=== PATIENT | male | born 1940 | race Caucasian/White ===

== ENCOUNTER 2022-05-19 13:14 | Inpatient (IN) | payer MEDICARE, MEDICAID ==
[~2022-05-19] VITALS: Ht 172.7 cm; Wt 67.1 kg
[2022-05-19] MEDS ORDERED: SODIUM CHLORIDE 0.9% 1,000 ML IV ONE (14:45)
[2022-05-19 15:55] LABS: BASOPHILS % 0.5 % (0.0-2.0); CHLORIDE 111 mEq/L (98-107); EOSINOPHILS % 5.6 % (0.0-5.0); HEMATOCRIT. 30.5 % (42.0-52.0); HEMOGLOBIN. 9.9 g/dL (14.0-18.0); LYMPHOCYTES % 13.1 % (20.0-50.0); MEAN CORPUSCULAR HEMOGLOBIN 29.8 pg (28.0-32.0); MEAN CORPUSCULAR VOLUME 91.7 fL (80.0-94.0); MEAN PLATELET VOLUME 10.7 fl (7.4-10.4); MONOCYTES % 5.7 % (2.0-8.0); NEUTROPHILS % 75.1 % (40.0-76.0); PLATELET 175 x1000/uL (130-400); RED BLOOD CELL COUNT 3.33 mill/uL (4.7-6.1); RED CELL DISTRIBUTION WIDTH 15.3 % (11.6-14.6)
[2022-05-19 16:06] LABS: ETHANOL BLOOD < 10 mg/dL
[2022-05-19] MEDS ORDERED: PERM60CR4 TP (16:08)
[2022-05-19] MEDS ORDERED: PERMETHRIN 5% CREAM 60GM TOP ONE (16:15)
[2022-05-20 11:42] LABS: CLARITY URINE CLEAR (CLEAR); COLOR URINE YELLOW (YELLOW); KETONES URINE NEGATIVE (NEGATIVE); LEUKOCYTE ESTERASE URINE NEGATIVE (NEGATIVE); NITRITE URINE NEGATIVE (NEGATIVE); OCCULT BLOOD URINE NEGATIVE (NEGATIVE); PROTEIN URINE TRACE (NEGATIVE); SPECIFIC GRAVITY URINE 1.021 (1.005-1.030)
[2022-05-20 12:00] LABS: *AMPHETAMINES SCREEN URINE NEGATIVE (NEGATIVE); *BARBITURATES SCREEN URINE NEGATIVE (NEGATIVE); *BENZODIAZEPINES SCREEN URINE NEGATIVE (NEGATIVE); *COCAINE SCREEN URINE NEGATIVE (NEGATIVE); CANNABINOID URINE SCREEN PRESUMTIVE POSITIVE (NEGATIVE); METHADONE URINE SCREEN NEGATIVE (NEGATIVE); OPIATES URINE SCREEN NEGATIVE (NEGATIVE); PHENCYCLIDINE URINE SCREEN NEGATIVE (NEGATIVE)
[2022-05-20] MEDS ORDERED: ALBUTEROL (0.083%) 2.5MG/3ML NEB HHN PRN (15:15)
[2022-05-20] MEDS ORDERED: NALOXONE HCL 0.4MG/ML VIAL IV PRN (15:15)
[2022-05-20] MEDS ORDERED: IPRATROPIUM BROMIDE (0.02%) 0.5MG/2.5ML NEB HHN PRN (15:15)
[2022-05-20] MEDS ORDERED: CLONIDINE 0.1MG TABLET PO PRN (15:15)
[2022-05-20] MEDS ORDERED: IPRATROPIUM/ALBUTEROL 0.5-3(2.5)MG/3ML NEB HHN PRN (15:15)
[2022-05-20] MEDS ORDERED: ONDANSETRON HCL 4MG/2ML INJ IV PRN (15:15)
[2022-05-20] MEDS ORDERED: ACETAMINOPHEN 325MG TABLET PO PRN (15:15)
[2022-05-20] MEDS ORDERED: LORAZEPAM 0.5MG TABLET PO PRN (15:15)
[2022-05-20 20:00] VITALS: BP 141/71
[2022-05-20] MEDS: HYDROCODONE/ACETAMINOPHEN 5/325MG TABLET PO PRN (22:32)
[2022-05-21] VITALS: BP 157/76
[2022-05-21 04:00] VITALS: BP 158/73
[2022-05-21] MEDS: HYDROCODONE/ACETAMINOPHEN 5/325MG TABLET PO PRN ×2 (04:28→18:05)
[2022-05-21 06:25] LABS: BASOPHILS % 0.4 % (0.0-2.0); EOSINOPHILS % 6.1 % (0.0-5.0); HEMATOCRIT. 34.1 % (42.0-52.0); HEMOGLOBIN. 11.1 g/dL (14.0-18.0); LYMPHOCYTES % 14.1 % (20.0-50.0); MEAN PLATELET VOLUME 9.5 fl (7.4-10.4); MONOCYTES % 9.7 % (2.0-8.0); NEUTROPHILS % 69.7 % (40.0-76.0); PLATELET 229 x1000/uL (130-400); RED BLOOD CELL COUNT 3.83 mill/uL (4.7-6.1); RED CELL DISTRIBUTION WIDTH 15.1 % (11.6-14.6)
[2022-05-21 06:44] LABS: CHLORIDE 101 mEq/L (98-107)
[2022-05-21 08:00] VITALS: BP 131/65
[2022-05-21 12:00] VITALS: BP 132/57
[2022-05-21] MEDS ORDERED: PERMETHRIN 5% CREAM 60GM TOP NR (13:00)
[2022-05-21 16:00] VITALS: BP 120/58
[2022-05-21 20:00] VITALS: BP 141/69
[2022-05-22] VITALS: BP 123/73
[2022-05-22] MEDS: HYDROCODONE/ACETAMINOPHEN 5/325MG TABLET PO PRN (02:16)
[2022-05-22 04:00] VITALS: BP 121/70
[2022-05-22 08:00] VITALS: BP 127/68
[2022-05-22 12:00] VITALS: BP 121/62
[2022-05-22 16:00] VITALS: BP 111/57
[2022-05-22] MEDS: ACETAMINOPHEN 325MG TABLET PO PRN (16:30)
[2022-05-22 17:01] LABS: TOTAL IRON BINDING CAPACITY 452 ug/dL (250-450)
[2022-05-22 17:33] LABS: FOLIC ACID (FOLATE) SERUM 10.6 ng/mL (>5.38)
[2022-05-22 21:00] VITALS: BP 120/47
[2022-05-22] MEDS ORDERED: IOHEXOL-350 100 ML BOTTLE ONE (22:04)
[2022-05-23] VITALS: BP 133/72
[2022-05-23 04:00] VITALS: BP 116/80
[2022-05-23] MEDS: HYDROCODONE/ACETAMINOPHEN 5/325MG TABLET PO PRN (05:53)
[2022-05-23 07:13] LABS: CHLORIDE 102 mEq/L (98-107)
[2022-05-23 08:00] VITALS: BP 125/65
[2022-05-23 12:00] VITALS: BP 120/62
[2022-05-23] MEDS: THIAMINE HCL 100MG TABLET PO SCH (12:43)
[2022-05-23] MEDS: MULTIVITAMINS,THER W-MINERALS TABLET PO SCH (12:43)
[2022-05-23] MEDS: IRON SUCROSE COMPLEX 100 MG/5 ML ML IV SCH (12:44)
[2022-05-23] MEDS: CYANOCOBALAMIN 1000MCG/ML VIAL IM SCH (14:57)
[2022-05-23 16:00] VITALS: BP 126/63
[2022-05-23 20:00] VITALS: BP 142/82
[2022-05-24] VITALS: BP 139/75
[2022-05-24] MEDS: HYDROCODONE/ACETAMINOPHEN 5/325MG TABLET PO PRN (01:23)
[2022-05-24 04:00] VITALS: BP 143/69
[2022-05-24 08:00] VITALS: BP 141/66
[2022-05-24] MEDS: ACETAMINOPHEN 325MG TABLET PO PRN (08:10)
[2022-05-24] MEDS: DOCUSATE SODIUM 100MG CAPSULE PO PRN (08:58)
[2022-05-24] MEDS: THIAMINE HCL 100MG TABLET PO SCH (08:59)
[2022-05-24] MEDS: CYANOCOBALAMIN 1000MCG/ML VIAL IM SCH (08:59)
[2022-05-24] MEDS: MULTIVITAMINS,THER W-MINERALS TABLET PO SCH (08:59)
[2022-05-24 12:00] VITALS: BP 110/69
[2022-05-24] MEDS: IRON SUCROSE COMPLEX 100 MG/5 ML ML IV SCH (13:52)
[2022-05-24 15:55] VITALS: BP 119/61
[2022-05-24 20:00] VITALS: BP 113/45
[2022-05-25] VITALS (7 sets, daily range): BP systolic 112–144; BP diastolic 65–77
[2022-05-25] MEDS: DOCUSATE SODIUM 100MG CAPSULE PO PRN (09:21)
[2022-05-25] MEDS: CYANOCOBALAMIN 1000MCG/ML VIAL IM SCH (09:21)
[2022-05-25] MEDS: THIAMINE HCL 100MG TABLET PO SCH (09:21)
[2022-05-25] MEDS: MULTIVITAMINS,THER W-MINERALS TABLET PO SCH (09:21)
[2022-05-25] MEDS: IRON SUCROSE COMPLEX 100 MG/5 ML ML IV SCH (13:00)
[2022-05-26] VITALS: BP 130/83
[2022-05-26 04:00] VITALS: BP 144/73
[2022-05-26 08:00] VITALS: BP 136/72
[2022-05-26] MEDS: CYANOCOBALAMIN 1000MCG/ML VIAL IM SCH (08:35)
[2022-05-26] MEDS: MULTIVITAMINS,THER W-MINERALS TABLET PO SCH (08:35)
[2022-05-26] MEDS: THIAMINE HCL 100MG TABLET PO SCH (08:35)
[2022-05-26] MEDS: ACETAMINOPHEN 325MG TABLET PO PRN (08:36)
[2022-05-26 12:00] VITALS: BP 130/70
[2022-05-26 16:19] VITALS: BP 112/64
[2022-05-26 20:00] VITALS: BP 129/69
[2022-05-26] MEDS ORDERED: NALOXONE HCL 0.4MG/ML VIAL IV PRN (20:15)
[2022-05-26] MEDS: HYDROCODONE/ACETAMINOPHEN 5/325MG TABLET PO PRN (20:18)
[2022-05-27 08:00] VITALS: BP 118/67
[2022-05-27] MEDS: THIAMINE HCL 100MG TABLET PO SCH (09:08)
[2022-05-27] MEDS: MULTIVITAMINS,THER W-MINERALS TABLET PO SCH (09:08)
[2022-05-27] MEDS: CYANOCOBALAMIN 1000MCG/ML VIAL IM SCH (09:09)
[2022-05-27 12:00] VITALS: BP 115/65
[2022-05-27 16:00] VITALS: BP 100/49
[2022-05-27 20:00] VITALS: BP 115/59
[2022-05-28] VITALS: BP 120/60
[2022-05-28 04:00] VITALS: BP 105/61
[2022-05-28 08:00] VITALS: BP 130/68
[2022-05-28] MEDS: THIAMINE HCL 100MG TABLET PO SCH (11:01)
[2022-05-28] MEDS: MULTIVITAMINS,THER W-MINERALS TABLET PO SCH (11:01)
[2022-05-28] MEDS: DOCUSATE SODIUM 100MG CAPSULE PO PRN (11:02)
[2022-05-28] MEDS: ACETAMINOPHEN 325MG TABLET PO PRN (11:02)
[2022-05-28 12:00] VITALS: BP 116/58
[2022-05-28] MEDS ORDERED: PERMETHRIN 5% CREAM 60GM TOP NR (13:00)
[2022-05-28 16:00] VITALS: BP 117/65
[2022-05-28] MEDS: HYDROCODONE/ACETAMINOPHEN 5/325MG TABLET PO PRN (16:21)
[2022-05-29 08:00] VITALS: BP 119/70
[2022-05-29] MEDS: MULTIVITAMINS,THER W-MINERALS TABLET PO SCH (10:56)
[2022-05-29] MEDS: THIAMINE HCL 100MG TABLET PO SCH (10:56)
[2022-05-29] MEDS: DOCUSATE SODIUM 100MG CAPSULE PO PRN ×2 (10:57→18:09)
[2022-05-29] MEDS: HYDROCODONE/ACETAMINOPHEN 5/325MG TABLET PO PRN ×2 (10:57→18:09)
[2022-05-29 12:00] VITALS: BP 112/65
[2022-05-29 16:00] VITALS: BP 108/64
[2022-05-29 20:00] VITALS: BP 115/71
[2022-05-30] VITALS: BP 109/64
[2022-05-30 04:00] VITALS: BP 141/69
[2022-05-30 08:00] VITALS: BP 149/84
[2022-05-30] MEDS: THIAMINE HCL 100MG TABLET PO SCH (08:59)
[2022-05-30] MEDS: MULTIVITAMINS,THER W-MINERALS TABLET PO SCH (08:59)
[2022-05-30 12:00] VITALS: BP 102/61
[2022-05-30 16:00] VITALS: BP 121/59
[2022-05-30] MEDS: HYDROCODONE/ACETAMINOPHEN 5/325MG TABLET PO PRN (17:25)
[2022-05-30 20:00] VITALS: BP 122/63
[2022-05-31] VITALS: BP 131/70
[2022-05-31 04:00] VITALS: BP 135/67
[2022-05-31 08:00] VITALS: BP 135/61
[2022-05-31] MEDS: MULTIVITAMINS,THER W-MINERALS TABLET PO SCH (08:52)
[2022-05-31] MEDS: THIAMINE HCL 100MG TABLET PO SCH (08:52)
[2022-05-31 11:59] VITALS: BP 127/67
[2022-05-31 16:00] VITALS: BP 118/71
[2022-05-31 20:00] VITALS: BP 125/65
[2022-06-01] VITALS (7 sets, daily range): BP systolic 113–137; BP diastolic 68–77
[2022-06-01] MEDS: MULTIVITAMINS,THER W-MINERALS TABLET PO SCH (09:53)
[2022-06-01] MEDS: THIAMINE HCL 100MG TABLET PO SCH (09:53)
[2022-06-01] MEDS: ACETAMINOPHEN 325MG TABLET PO PRN (10:04)
== END 2022-06-01 21:16 | DRG 46 ==
LOC: ER 13:32 → 7EST 05-20 13:52 → EDBEDREQTM 05-20 13:59 → EDBEDREQ 05-20 13:59 → 6EST 05-25 01:39
PROVIDERS: ADMIT Internal Medicine; ATTEND Internal Medicine
DX: I65.23 Occlusion and stenosis of bilateral carotid arteries (principal); E44.1 Mild protein-calorie malnutrition; G90.8 Other disorders of autonomic nervous system; B85.2 Pediculosis, unspecified; F17.200 Nicotine dependence, unspecified, uncomplicated; D50.9 Iron deficiency anemia, unspecified; I95.1 Orthostatic hypotension; Z20.822 Contact with and (suspected) exposure to COVID-19; Z59.01 Sheltered homelessness
CPT/HCPCS: 36415; 70496; 70498; 73502; 73560; 78582; 80048; 80053; 80305; 80320; 81003; 82607; 82728; 82746; 82962; 83540; 83550; 84484; 85025; 85379; 87426; 93005; 93306; 93880; 93970; 96360; 97110; 97116; 97162; 97166; 97530; 97535; 99285; A9558; J3420; J7030; Q9967; G0480